=== PATIENT | female | born 1975 | race Caucasian/White ===

== ENCOUNTER 2016-12-14 23:00 | Emergency (ER) | payer MEDICARE ==
[2016-12-15 01:27] LABS: HEMOGLOBIN 13.9 gm/dl (12.3-15.3); RED BLOOD COUNT 4.6 M/UL (4.00-5.10); WHITE BLOOD COUNT 11.3 K/UL (4.5-11.0)
[2016-12-15 01:44] LABS: BUN/CREATININE RATIO 20 (0-10)
== END 2016-12-15 04:31 | disposition home or self-care (01) ==
LOC: ER1 23:00
PROVIDERS: Specialist/Technologist Athletic Trainer
DX: N94.6 Dysmenorrhea, unspecified (principal); F17.210 Nicotine dependence, cigarettes, uncomplicated
CPT/HCPCS: 36415; 80053; 80307; 81001; 83690; 84703; 85025; 96360; 99284; J1885; J7030; J7050; Q9962